=== PATIENT | male | born 1950 | race Asian ===

== ENCOUNTER 2018-02-15 17:20 | Inpatient (IN) | payer OTHER ==
[~2018-02-15] VITALS: Ht 170.2 cm; Wt 65.3 kg
[2018-02-15 17:28] VITALS: Ht 170.2 cm; Wt 65.3 kg
[2018-02-15 18:05] LABS: BASOPHIL % 0.5 % (0-2); PLATELET COUNT 259 x10^3mcL (130-400)
[2018-02-15 18:12] LABS: CALCIUM 8.9 mg/dL (8.5-10.1); CARBON DIOXIDE 32.3 mmol/L (21-32); CHLORIDE SERUM 102 mmol/L (98-107); CREATININE SERUM 1.1 mg/dL (0.7-1.3); GFR1 > 60 mL/min; GLUCOSE SERUM 179 mg/dL (74-106); POTASSIUM SERUM 3.7 mmol/L (3.5-5.1); SODIUM SERUM 140 mmol/L (136-145)
[2018-02-15 18:18] LABS: ALBUMIN 3.7 g/dL (3.4-5.0); ALKALINE PHOSPHATASE 78 U/L (46-116); ALT/SGPT 45 U/L (16-63); AST/SGOT 20 U/L (15-37); BILIRUBIN TOTAL 0.5 mg/dL (0.20-1.00); TOTAL PROTEIN, SERUM 7.7 g/dL (6.4-8.2)
[2018-02-15] MEDS ORDERED: METFORMIN HCL500 MG PO (18:59)
[2018-02-15] MEDS ORDERED: DIOVAN HCT1 TAB PO (18:59)
[2018-02-15] MEDS ORDERED: LOVASTATIN20 MG PO (19:00)
[2018-02-15 19:27] VITALS: BP 150/84
[2018-02-15 19:48] LABS: MAGNESIUM 2.1 mg/dL (1.8-2.4); PHOSPHOROUS 4.1 mg/dL (2.5-4.9)
[2018-02-15 19:53] LABS: CHOLESTEROL/HDL RATIO 4.5
[2018-02-15 19:56] LABS: T3 TOTAL 1.24 ng/mL
[2018-02-15 19:58] LABS: FREE T4 0.84 ng/dL (0.76-1.46); FREE THYROXINE INDEX 2.1 ug/dL (1.4-4.5); T4(THYROXINE) 6.3 ug/dL (4.7-13.3)
[2018-02-16 05:36] VITALS: BP 117/69
[2018-02-16 07:17] LABS: CALCIUM 8.9 mg/dL (8.5-10.1); CARBON DIOXIDE 24.9 mmol/L (21-32); CHLORIDE SERUM 103 mmol/L (98-107); CREATININE SERUM 0.8 mg/dL (0.7-1.3); GFR1 > 60 mL/min; GLUCOSE SERUM 153 mg/dL (74-106); MAGNESIUM 2.1 mg/dL (1.8-2.4); PHOSPHOROUS 3.8 mg/dL (2.5-4.9); POTASSIUM SERUM 4.5 mmol/L (3.5-5.1); SODIUM SERUM 138 mmol/L (136-145)
[2018-02-16 07:20] LABS: BASOPHIL % 0.2 % (0-2); PLATELET COUNT 245 x10^3mcL (130-400); RED CELL DISTRIBUTION WIDTH 13.3 % (11.5-14.5)
[2018-02-16 08:43] VITALS: BP 116/64
[2018-02-16 08:57] LABS: microscopic required? NO
[2018-02-16 09:08] LABS: urine erythrocyte NEGATIVE (NEGATIVE)
[2018-02-16 09:41] LABS: AMPHETAMINE QUAL UR NONE DETECTED (See below)
[2018-02-16] MEDS ORDERED: KEFLEX500 M1 PO (13:10)
[2018-02-16] MEDS ORDERED: BENADRYL ALLERG25 M1 PO (13:11)
[2018-02-16] MEDS ORDERED: LAC PO (13:13)
[2018-02-16] MEDS ORDERED: PEPCID20 MG PO (13:13)
[2018-02-16] MEDS ORDERED: BLOOD GLUCOSE1 EAC5 MC (13:18)
== END 2018-02-16 14:03 | disposition home or self-care (01) | DRG 918 ==
LOC: ED 17:20 → DU 18:38
PROVIDERS: Emergency Medicine; General Practice
DX: T63.421A Toxic effect of venom of ants, accidental (unintentional), initial encounter (principal); T78.2XXA Anaphylactic shock, unspecified, initial encounter; T78.3XXA Angioneurotic edema, initial encounter; I95.89 Other hypotension; R06.00 Dyspnea, unspecified; R11.2 Nausea with vomiting, unspecified; E11.65 Type 2 diabetes mellitus with hyperglycemia; I10 Essential (primary) hypertension; E03.9 Hypothyroidism, unspecified; E78.5 Hyperlipidemia, unspecified; E78.00 Pure hypercholesterolemia, unspecified; F17.210 Nicotine dependence, cigarettes, uncomplicated; Z68.21 Body mass index [BMI] 21.0-21.9, adult; Z79.84 Long term (current) use of oral hypoglycemic drugs; Y92.017 Garden or yard in single-family (private) house as the place of occurrence of the external cause
CPT/HCPCS: 82962; 83880; 84439; J1200; J2920; J2930; J3490; J7030; Q0092; Q0163